=== PATIENT | male | born 2000 | race Caucasian/White ===

== ENCOUNTER 2018-05-24 23:23 | Inpatient (IN) | payer BC ==
[~2018-05-24] VITALS: Ht 175.3 cm; Wt 98.2 kg
[2018-05-24 23:39] LABS: BASO % 0.3 % (0.0-2.0); EOS # 0.1 (0.0-0.7); EOS % 0.8 % (0-4.0); GRAN # 8.1 (1.4-6.5); HEMATOCRIT 45.2 % (36.0-47.0); HEMOGLOBIN 15.4 g/dl (12.5-16.1); LYMPH # 2.1 (1.2-3.4); MEAN CELL VOLUME 84 fl (80.0-95.0); MEAN CORPUSCULAR HEMOGLOBIN 29 pg (26.0-32.0); MEAN CORPUSCULAR HGB CONC 34 g/dl (33.0-37.0); MEAN PLATELET VOLUME 9.6 fl (7.4-10.4); MONO # 0.5 (0.1-0.6); MONO % 4.2 % (1.7-9.3); PLATELET COUNT 219 K/mm3 (130-400); RED BLOOD COUNT 5.37 M/mm3 (4.20-5.60); REDCELL DISTRIBUTION WIDTH-CV 12.6 % (11.5-14.5)
[2018-05-24 23:46] LABS: FIBRINOGEN 220 mg/dL (200-450)
[2018-05-24 23:47] LABS: INR 1.1 (0.8-3.0); PROTHROMBIN TIME 12.2 SECONDS (9.7-12.8)
[2018-05-24 23:49] LABS: PARTIAL THROMBOPLASTIN TIME 37.5 SECONDS (26.0-37.0)
[2018-05-24 23:50] LABS: ALBUMIN 4.6 gm/dL (3.5-5.0); BILIRUBIN,TOTAL 0.4 mg/dL (0.0-1.0); CALCIUM 9.3 mg/dL (8.4-10.2); CREATININE, serum 0.94 mg/dL (0.66-1.25); POTASSIUM 4.6 mmol/L (3.4-5.0); TOTAL PROTEIN 7.7 gm/dL (6.4-8.2)
[2018-05-24 23:52] LABS: D-DIMER < 200.00 ng/mLDDu (200-230)
[2018-05-25 03:33] VITALS: BP 133/66; PULSE 87; TEMP 99.3
[2018-05-25 07:35] LABS: BASO % 0.2 % (0.0-2.0); EOS % 0.1 % (0-4.0); GRAN # 12.7 (1.4-6.5); GRAN % 86.2 % (42.2-75.2); HEMATOCRIT 45.6 % (36.0-47.0); LYMPH % 6.4 % (20.0-51.0); MEAN CELL VOLUME 86 fl (80.0-95.0); MEAN CORPUSCULAR HEMOGLOBIN 28 pg (26.0-32.0); MEAN CORPUSCULAR HGB CONC 33 g/dl (33.0-37.0); MEAN PLATELET VOLUME 10.3 fl (7.4-10.4); MONO % 6.4 % (1.7-9.3); PLATELET COUNT 240 K/mm3 (130-400); REDCELL DISTRIBUTION WIDTH-CV 12.8 % (11.5-14.5)
[2018-05-25 07:50] LABS: INR 1.1 (0.8-3.0); PROTHROMBIN TIME 12.7 SECONDS (9.7-12.8)
[2018-05-25 08:10] VITALS: BP 132/52; PULSE 83; TEMP 98.4
[2018-05-25 11:11] VITALS: BP 137/66; PULSE 78; TEMP 98.3
[2018-05-25 15:39] VITALS: BP 117/67; PULSE 64; TEMP 98.2
[2018-05-25 20:03] VITALS: BP 132/77; PULSE 79; TEMP 98.2
[2018-05-25 23:30] VITALS: BP 128/60; PULSE 55; TEMP 98.6
[2018-05-26 04:37] VITALS: BP 118/63; PULSE 70; TEMP 98.6
[2018-05-26 06:25] LABS: BASO % 0.5 % (0.0-2.0); EOS # 0.3 (0.0-0.7); EOS % 3.4 % (0-4.0); GRAN # 3.8 (1.4-6.5); HEMOGLOBIN 14.6 g/dl (12.5-16.1); LYMPH # 2.6 (1.2-3.4); LYMPH % 34.5 % (20.0-51.0); MEAN CELL VOLUME 86 fl (80.0-95.0); MEAN CORPUSCULAR HEMOGLOBIN 29 pg (26.0-32.0); MEAN CORPUSCULAR HGB CONC 33 g/dl (33.0-37.0); MEAN PLATELET VOLUME 9.9 fl (7.4-10.4); MONO # 0.8 (0.1-0.6); MONO % 10.4 % (1.7-9.3); PLATELET COUNT 200 K/mm3 (130-400); REDCELL DISTRIBUTION WIDTH-CV 12.8 % (11.5-14.5)
[2018-05-26 06:36] LABS: CREATININE, serum 0.89 mg/dL (0.66-1.25); POTASSIUM 5.5 mmol/L (3.4-5.0)
[2018-05-26 07:23] LABS: INR 1.1 (0.8-3.0); PROTHROMBIN TIME 12.2 SECONDS (9.7-12.8)
[2018-05-26 07:48] VITALS: BP 125/67; PULSE 72; TEMP 97.8
== END 2018-05-26 10:11 | disposition home or self-care (01) | DRG 918 ==
LOC: COL.ER 23:23 → JCC 05-25 01:02
PROVIDERS: Emergency Medicine; Nurse Practitioner; Physician Assistant
DX: T63.091A Toxic effect of venom of other snake, accidental (unintentional), initial encounter (principal); E87.5 Hyperkalemia
CPT/HCPCS: 99222-AI; 99232-AI; J0840; J1170; J2405; J2550; J3010; J7050